=== PATIENT | female | born 1960 | race Caucasian/White ===

== ENCOUNTER 2022-01-26 09:46 | Day surgery (SDC) | payer SELFPAY ==
[2022-01-26] VITALS (22 sets, daily range): BP systolic 92–162; BP diastolic 59–99; PULSE 67–104; RESP 14–18; TEMP 35.9–37.2; O2SAT 93–99; BMI 19.5
--- NOTE | 2022-01-26 | SCC_ITS ---
Procedure done: Open reduction and internal fixation left medial and lateral malleolus 6.2 seconds of fluoroscopic guidance, for a cumulative dose of 0.14 mGy, was provided to Dr. Duran by the radiology department. C-arm images of the LEFT elbow were saved for the patient's permanent record. [facility] CENTERCarla
--- NOTE | 2022-01-26 | XR_ITS ---
WS: [id number] LEFT ANKLE: 1 VIEW(S) TECHNIQUE: One view postreduction. HISTORY: reduction COMPARISON: Earlier the same day. Single AP film is obtained postreduction. Distal fibular fragment measuring 3.6 x 2.0 cm is laterally displaced. Anterior posterior position ca nnot be confirmed on this single radiograph. Again noted is the minimally displaced medial malleolus fracture. IMPRESSION: Displaced fragment distal fibula extends laterally.
--- NOTE | 2022-01-26 10:08 | XR_ITS ---
WS: [id number] LEFT ANKLE: 3 VIEW(S) TECHNIQUE: AP, oblique(s) and lateral. HISTORY: pain/swelling COMPARISON: None available. Acute bimalleolar fractures. Transverse fracture through the medial malleolus with 3 mm displacement. Additional mildly comminuted fracture with displacement involving the distal fibula. On the lateral projection part of the distal fibular fracture is significantly displaced anteriorly. The posterior t ibia appears intact. Diffuse moderate soft tissue edema. No significant degenerative changes at the joint spaces. XR/XR ankle LT min 3V* [id number] IMPRESSION: 1. Bimalleolar fracture with moderate soft tissue edema. 2. Distal fibular fracture is comminuted with significant displacement of the distal fracture fragment extending anteriorly. 3. Mildly displaced transverse medial malleolus fracture.
[2022-01-26] MEDS: morphine 4 mg/mL SDV 1 mL IVP (10:30)
[2022-01-26] MEDS: ondansetron 2 mg/ML SDV 2 mL 4 MG IVP (10:30)
--- NOTE | 2022-01-26 12:02 | ED_ITS ---
HPI - Extremity Problem General: Chief complaint: Extremity Injury, Lower Stated complaint: Possible broken ankle Time Seen by Provider: 01/26/22 10:06 Source: patient Mode of arrival: ambulatory Limitations: no limitations History of Present Illness: 61-year-old female who presents to the emergency room with complaints of left ankle pain she was walking on a ramp on a chicken coop slipped and fell an inversion injury of her left ankle she is unable to bear weight she denies any other injury did not strike her head. Happened about 1 and half to 2 hours prior. MD Complaint: joint swelling and joint pain Onset (ago): hour(s) Pain Consistency: constant Location: left Quality: aching Radiation: none Relieving factors: immobilization Exacerbating factors: range of motion and palpation Associated symptoms: Deny arthralgias, chest pain, fever(s), myalgias, rash or short of breath Review of Systems Const: Denies: fever(s) ENMT: Denies: throat pain, ear or mastoid pain, nasal discharge or nasal congestion Card: Denies: chest pain Resp: Denies: dyspnea, productive cough or non-productive cough GI: Denies: abdominal pain, nausea, vomiting, hematemesis, coffee ground emesis, diarrhea, constipation, bloating, hematochezia or melena : Denies: flank pain, difficulty voiding, dysuria, urinary frequency or urinary urgency Skin/Breast: Denies: rash PFSH ED PFSH: Medical History (Updated 02/02/22 @ 15:21 by Jones Bhatia DO) No pertinent past medical history Surgical History (Updated 02/02/22 @ 15:16 by Jones Bhatia DO) No pertinent past surgical history Social History (Updated 02/02/22 @ 15:17 by Jones Bhatia DO) Smoking and tobacco status: never smoked Alcohol intake: never Physical Exam Const: GENERAL APPEARANCE: cooperative and comfortable ORIENTATION/CONSCIOUSNESS: Yes awake, Yes oriented to person, Yes oriented to place and Yes oriented to time HENMT: COMMON NORMALS: normocephalic and atraumatic HEAD & SCALP: normocephalic and atraumatic Neck/C-Spine: COMMON NORMALS: no JVD Resp: COMMON NORMALS: normal respiratory effort, No retractions, No use of accessory muscles and clear to auscultation bilaterally AUSCULTATION: clear to auscultation bilaterally Cardio: COMMON NORMALS: no JVD, regular rate, regular rhythm and No murmurs present (Cardio) RATE: regular rate RHYTHM: regular rhythm GI: COMMON NORMALS: Soft to palpation and No hepatosplenomegaly present AUSCULTATION: Yes normoactive bowel sounds PALPATION: Yes Soft to palpation, No Tenderness to palpation present (GI), No Guarding due to palpation present (GI) and Yes No hepatosplenomegaly present Extremity: OTHER: Obvious deformity with inversion deformity at the left ankle with tenting of the skin at the lateral malleolus from the fracture fragment. Dorsalis pedis posterior tibialis pulses intact good capillary refill distally Neuro: SENSORIUM/ORIENTATION: Yes oriented to person, Yes oriented to place and Yes oriented to time Skin: COMMON NORMALS: no rashes or lesions noted GENERAL SKIN EXAM: no rashes or lesions noted Procedures Orthopedic Fracture Reduction Fracture #1: Time Out Performed: Yes Side: left Fracture Reduction Location: other (Ankle bimalleolar fracture) Technique: direct manipulation and traction/counter-traction Post-reduction neuro exam: intact Post-reduction vascular exam: intact Splint Applied: Yes Patient Tolerated Procedure: well Additional Comments: Despite several attempts unable to get the fracture reduced enough to make the skin tenting go away there is significant deformity and distal malrotation of the lateral malleoli fragment. Procedural Sedation Indication: fracture/dislocation reduction Preparation: night monitor applied, supplemental O2 applied, suction/airway equipment at bedside and IV secured IV Etomidate dose (mg): 10 Patient Tolerated Procedure: well Complications: none Course Vital Signs: Vital signs: Vital Signs Temperature 98.8 F 01/26/22 18:00 Pulse Rate 80 01/26/22 18:00 Respiratory Rate 18 01/26/22 18:00 Blood Pressure 124/70 01/26/22 18:00 Pulse Oximetry 94 01/26/22 18:00 MDM - Extremity (Nontraumatic) Medical Decision Making Contacted Dr. Duran. I was unable to reduce the fracture enough to resolve the skin tenting at the lateral malleolus. Dr. Duran came to the department made an attempt as well he will also was unable to do so and they have decided to admit the patient for early open reduction fixation of the ankle fracture. Discussed with the patient and her they are in agreement. Medical Records I reviewed the patient's medical records. Lab Data I reviewed the patient's lab results. Radiology Impressions Ankle X-Ray 01/26/22 14:47 IMPRESSION: Internal fixation of medial malleolar and distal fibular fractures of the left ankle without abnormality. 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
[2022-01-26] MEDS: fentaNYL 50 mcg/mL INJ 2mL IVP (12:43)
--- NOTE | 2022-01-26 14:06 | PC.NURSE ---
report to Elba BRUNNER from the OR- patient taken to the OR
[2022-01-26] MEDS: sodium chloride 0.9% 1,000 ML 30 ML IV (14:40)
--- NOTE | 2022-01-26 14:47 | XR_ITS ---
WS: [id number] XR ankle LT 1V [id number] REASON FOR EXAM: OR PIC FINDINGS: Plate and screw fixation of distal fibular fracture at the level of the syndesmosis. Screw fixation of transverse medial malleolar fracture. Surgical appliances and bony fragments are in good position and alignment. XR/XR ankle LT 1V [id number] IMPRESSION: Internal fixation of medial malleolar and distal fibular fractures of the left ankle without abnormality.
--- NOTE | 2022-01-26 14:59 | ANES.PREANE2 ---
Pre-Anesthetic Assessment Height/Weight: Height 1.7 m Weight 56.699 kg Temp Pulse Resp BP Pulse Ox 97.5 F L 75 16 138/89 97 01/26/22 14:23 01/26/22 14:23 01/26/22 14:23 01/26/22 14:23 01/26/22 14:23 Preop Diagnosis: Left bimalleolar ankle fracture Operation Date: 01/26/22 15:15 Proposed Procedures p ORIF Ankle(Left) - Doug Duran MD Familial anesthetic complications: None Was Beta Elizabeth taken within 24 hours: N/A Was Clonidine taken within 24 hours: N/A Last intake: Intake Last Liquid Date 01/26/22 Last Liquid Time 07:00 Last Solid Date 01/26/22 Last Solid Time 07:00 Social No alcohol and No tobacco Exam alert, oriented x 3, clear to auscultation bilaterally and regular rate & rhythm Airway Submandibular: within normal limits Cervical ROM: within normal limits Mallampati: Class II Dentition: full History/ROS No significant history except as noted Anesthetic Plan ASA status: 1 Anesthesia: General Medications/Allergies Home Medications Medication Instructions Recorded Confirmed Last Taken Type [place] Supplement 1 cap PO DAILY 01/26/22 01/26/22 01/26/22 History Orthomune 1 tab PO DAILY 01/26/22 01/26/22 01/26/22 History calcium carb-Ca gluc 500 mg 1 tab PO DAILY 01/26/22 01/26/22 01/26/22 History calcium-magnesium ox-Mg gluc 250 mg tablet (Calcium Magnesium) Allergies Allergy/AdvReac Type Severity Reaction Status Date / Time No Known Allergies Allergy Verified 01/26/22 14:27 Data Anesthesia Cardiac Studies: No Data to Display
[2022-01-26] MEDS: acetaminophen 1,000 MG/100 ML PIGGYBACK 400 MG IV (15:00)
--- NOTE | 2022-01-26 16:36 | SUR.PHASEI ---
1626 PT TO PACU AWAKES TO VOICE , REPOSITIONS SELF TO RT SIDE, WARM BLANKETS X 4 TO PT, LT LOWER LEG/FOOT ELEVATED ON PILLOW, IV TO RT AC #20 PATENT WITH NS 200ML UP AT KVO RATE PER GRAVITY, PTID BRACELET TO LT WRIST , PT ID'D WITH 2 IDENTIFIERS, SCD TO RT LEG, DRESSING D/I TO LT LEG/FOOT DISTAL TOES PINK WARM WITH CAP REFILL LESS THAN 3 SECONDS. PT QUICKLY BACK TO SLEEP WITH NO S/S OF PAIN OR DISTRESS.
--- NOTE | 2022-01-26 16:45 | SUR.PHASEI ---
PT GIVEN MORE WARM BLANKETS, PT DENIES PAIN , SLEEPS IF NOT DISTURBED, PT ON RA TRIAL. SATS 92-93% WHILE SLEEPING.
[2022-01-26] MEDS: meperidine 50 mg/mL INJ 12.5 MG IVP (16:51)
--- NOTE | 2022-01-26 16:59 | P.OP_ITS ---
Operative Report Date of procedure: January 26, 2022 Pre-op diagnosis: Preop Diagnosis Left bimalleolar ankle fracture Post-op diagnosis: same Procedure done: Open reduction and internal fixation left medial and lateral malleolus Implants: [place] Variax 6-hole semitubular plate with 6 screws 3 Variax interfragmentary screws 4.0 millimeters cannulated screws x2 Surgeon: Doug Duran Anesthesia: General Estimated blood loss (mL): 20 Tourniquet time (min): 67 Complications: None Findings: The patient had a comminuted fracture of her left distal fibula consisting of a Y shaped fracture of the fibula at the level of the mortise and a small distal medial malleolar fragment Condition: stable Disposition: PACU Brief History: Ms. Govea sustained a bimalleolar ankle fracture this morning when she caught her toe walking. Radiographs revealed a bimalleolar ankle fracture with a displaced anterior fragment compromising the anterior lateral skin. She was taken to the operating room emergently for facture fixation and decompression of the compromised anterior lateral skin Procedure: Ms. Govea was taken to the operating room and given a general anesthesia. She was given 2 g of Ancef. She was prepped and draped in the supine position with a bump under the left hip. A timeout was performed. Initially a 5 cm long incision was made along the tip of the lateral malleolus extending proximally dissection was carried down full-thickness to the fibula. Initially the posterior distal fragment was brought out to length and held provisionally with a fracture clamp. The anterior displaced fragment could then be rotated and reduced into the defect anteriorly. It was provisionally fixed with a single interfragmentary anterior to posterior compression screw. A 6-hole antiglide plate was then placed along the posterior fibula it was secured with 3 screws to the proximal fragment. 3 distal screws were placed passing through the posterior fragment in to the larger anterior fragment. Her bone was soft. 2 additional anterior posterior screws were placed from the anterior to posterior fragment for additional fixation. Next a 4 cm long incision was made over the tip of the medial malleolus and dissection carried down to that medial malleolar fragment. It was provisionally held reduced with a towel clamp. 2 4.0 mm partially-threaded screws were passed from the tip of the fragment into the medial malleolus. The fragment was small and 1 screw could be placed with a washer but that left little room for a second posterior washer and the a second screw was placed without. Wounds were irrigated with saline. Deep tissues were closed with 2-0 Vicryl. Skin was closed with interrupted 3-0 Prolene. Xeroflo gauze, 4 x 4's, ABD pads, compressive web roll, a posterior splint and Kj wrap were applied. The patient was extubated and taken to recovery in stable condition.
[2022-01-26] MEDS: HYDROmorphone 1 mg/mL INJ 1 mL 0.5 MG IVP (17:03)
[2022-01-26] MEDS: ketorolac 30 mg/mL INJ 15 MG IVP (17:08)
--- NOTE | 2022-01-26 17:08 | ANE.PACU2 ---
Inpatient post-anesthesia follow up: Airway intact: Yes Vital signs: Temperature 98.2 F Pulse Rate 92 Respiratory Rate 16 Blood Pressure 162/92 Pulse Oximetry 94 Oxygen Delivery Me thod Room Air Oxygen Flow Rate 8 Fraction of Inspir ed Oxygen Hydration adequate: Yes Nausea and vomiting: No Pain level: 7 Mental status: Baseline
[2022-01-26] MEDS: HYDROcodone-acetaminophen 5-325 mg Tablet 1 TAB PO (18:02)
== END 2022-01-26 18:30 | disposition home or self-care (01) ==
LOC: ER 13:49 → OR 13:53
PROVIDERS: Emergency Provider Family Medicine; Family Provider Family Medicine; PCP Family Medicine; Visit Provider Orthopaedic Surgery
PROC: (CPT 27814; principal; 2022-01-26 15:15)
DX: S82.842A Displaced bimalleolar fracture of left lower leg, initial encounter for closed fracture (principal); W01.10XA Fall on same level from slipping, tripping and stumbling with subsequent striking against unspecified object, initial encounter
CPT/HCPCS: 27814; 27810; 73600; 73610; 76000; 99152; C1713; J0690; J1100; J1170; J1200; J1885; J2175; J2270; J2405; J2704; J3010; J3490; J7030

== ENCOUNTER 2022-01-31 15:18 | Outpatient (CLI) | payer SELFPAY | END 2022-01-31 15:19 | disposition home or self-care (01) | LOC: SPT 15:19 | PROVIDERS: Family Provider Family Medicine; PCP Family Medicine; Visit Provider Orthopaedic Surgery | DX: Z46.89 Encounter for fitting and adjustment of other specified devices (principal); S82.842D Displaced bimalleolar fracture of left lower leg, subsequent encounter for closed fracture with routine healing; X58.XXXD Exposure to other specified factors, subsequent encounter | CPT/HCPCS: 97760; L4361 ==

== ENCOUNTER → 2022-02-02 15:37 | Outpatient (BNVA) | payer SELFPAY | PROVIDERS: Family Provider Family Medicine; PCP Family Medicine; Visit Provider Nurse Practitioner Family | DX: S82.842A Displaced bimalleolar fracture of left lower leg, initial encounter for closed fracture (principal); X58.XXXA Exposure to other specified factors, initial encounter; R23.1 Pallor; Z98.890 Other specified postprocedural states; L03.116 Cellulitis of left lower limb; R23.9 Unspecified skin changes; L03.90 Cellulitis, unspecified | CPT/HCPCS: 36415; 85007; 85025; 85610 ==

== ENCOUNTER → 2022-03-15 09:52 | Outpatient (BNVA) | payer SELFPAY | PROVIDERS: Family Provider Family Medicine; PCP Family Medicine; Visit Provider Orthopaedic Surgery | DX: Z98.890 Other specified postprocedural states (principal); M25.572 Pain in left ankle and joints of left foot; S82.892D Other fracture of left lower leg, subsequent encounter for closed fracture with routine healing; X58.XXXD Exposure to other specified factors, subsequent encounter | CPT/HCPCS: 73610 ==

== ENCOUNTER → 2022-04-05 09:44 | Outpatient (BNVA) | payer SELFPAY | PROVIDERS: Family Provider Family Medicine; PCP Family Medicine; Visit Provider Orthopaedic Surgery | DX: S82.842D Displaced bimalleolar fracture of left lower leg, subsequent encounter for closed fracture with routine healing (principal); X58.XXXD Exposure to other specified factors, subsequent encounter; Z98.890 Other specified postprocedural states; Z47.89 Encounter for other orthopedic aftercare | CPT/HCPCS: 73610 ==

== ENCOUNTER → 2022-05-03 08:44 | Outpatient (BNVA) | payer SELFPAY | PROVIDERS: Family Provider Family Medicine; PCP Family Medicine; Visit Provider Orthopaedic Surgery | DX: S82.842A Displaced bimalleolar fracture of left lower leg, initial encounter for closed fracture (principal); X58.XXXA Exposure to other specified factors, initial encounter | CPT/HCPCS: 73610 ==

== ENCOUNTER → 2024-10-29 14:48 | Outpatient (BNVA) | payer MEDICARE, SELFPAY | PROVIDERS: Family Provider Family Medicine; PCP Family Medicine; Referring Provider Family Medicine; Visit Provider Nurse Practitioner Family | DX: L85.3 Xerosis cutis (principal); L81.5 Leukoderma, not elsewhere classified; L82.1 Other seborrheic keratosis; L91.8 Other hypertrophic disorders of the skin; W89.1XXA Exposure to tanning bed, initial encounter | CPT/HCPCS: 11102; 17000; 99203 ==

== ENCOUNTER → 2025-01-06 07:59 | Outpatient (BNVA) | payer MEDICARE, SELFPAY | PROVIDERS: Family Provider Family Medicine; PCP Family Medicine; Visit Provider Nurse Practitioner Family | DX: L57.0 Actinic keratosis (principal) | CPT/HCPCS: 99213 ==

== ENCOUNTER 2025-01-29 14:15 | Outpatient (CLI) | payer MEDICARE, SELFPAY ==
--- NOTE | 2025-01-29 14:18 | XR_ITS ---
WS: [id number] SCREENING DEXA SCAN [email or web address] CLINICAL INFORMATION: POSTMENOPAUSAL COMPARISON: None. FINDINGS: The L1-L4 bone mineral density measures 0.925 g/cm2. This corresponds to a T score score of -2.1 and Z score of -0.4. Left femoral neck bone mineral density measures 0.640 g/cm2. This corresponds to a T score of -2.9 and Z score of -1.6. Right femoral neck bone mineral density measures 0.644 g/cm2. This corresponds to a T score -2.9of and Z score of -1.6. Mean femoral neck bone mineral density measures 0.642 g/cm2. This corresponds to a T score of -2.9 and Z score of -1.6. XR/XR DEXA axial skeleton* [id number] IMPRESSION: Osteopenia lumbar spine. Osteoporosis femoral necks. Patient's FRAX calculated 10 year probability for major osteoporotic fracture i s 28.7% and osteoporotic hip fracture is 7.0%.
== END 2025-01-29 14:16 | disposition home or self-care (01) ==
PROVIDERS: Family Provider Family Medicine; PCP Family Medicine; Visit Provider Family Medicine
DX: Z78.0 Asymptomatic menopausal state (principal); M85.88 Other specified disorders of bone density and structure, other site; M81.0 Age-related osteoporosis without current pathological fracture
CPT/HCPCS: 77080

== ENCOUNTER → 2025-07-22 15:41 | Outpatient (BNVA) | payer MEDICARE, SELFPAY | PROVIDERS: Family Provider Family Medicine; PCP Family Medicine; Visit Provider Nurse Practitioner Family | DX: L57.0 Actinic keratosis (principal); W89.1XXA Exposure to tanning bed, initial encounter; L82.0 Inflamed seborrheic keratosis; L53.8 Other specified erythematous conditions; R20.8 Other disturbances of skin sensation | CPT/HCPCS: 17000; 17110; 99213 ==